=== PATIENT | male | born 1930 | race Caucasian/White ===

== ENCOUNTER 2016-07-19 19:49 | Emergency (ER) | payer MEDICARE ==
[~2016-07-19] VITALS: Ht 162.6 cm; Wt 67.0 kg
[~2016-07-19 19:49] MED LIST: ASPI81 PO; ATOR10 PO; [UNRECOGNIZED DRUG - REMARK]
[2016-07-19 20:53] VITALS: BP 113/75; PULSE 86; RESP 24; TEMP 100; O2SAT 91
[2016-07-19 21:16] VITALS: BP 113/75; PULSE 86; RESP 20; TEMP 100; O2SAT 91
--- NOTE | 2016-07-19 21:31 | PD ---
HPI Chief Complaint: Cold / Flu Symptoms Time Seen by Provider: 21:10 Travel History International Travel<30 days: No Contact w/Intl Traveler<30days: No Traveled to known affect area: No History of Present Illness HPI This 85-year-old male is complaining of persistent cough. He's been coughing for several days. He does not smoke. He has no history of hypertension or diabetes. He does have a pacemaker. He says he has not been feeling short of breath. He has been feeling quite weak. He needed help getting off the commode earlier today which is quite unusual. He has been little bit confused. PFSH Past Medical History Autoimmune Disease: No Blood Disorders: No Heart Rhythm Problems: Yes (BRADYCARDIA) Cancer: Yes Cardiovascular Problems: Yes High Cholesterol: Yes Chemotherapy: No Chest Pain: No Congestive Heart Failure: No Diminished Hearing: No Endocrine: No Gastrointestinal Disorders: No Genitourinary: No Hypertension: No Immune Disorder: No Implanted Vascular Access Dvce: No Musculoskeletal: No Neurologic: Yes (CRANIOTOMY IN 1980 ) Psychiatric: No Reproductive: No Respiratory: No Immunizations Current: Yes ([id number]) Myocardial Infarction: No Radiation Therapy: Yes (RADIATION FINISHED IN 1991 BENIGN TUMOR OPTIC NERVE) Tetanus Vaccination: Unknown PNEUMOCCOCAL Vaccine (Year): 2007 Past Surgical History Abdominal Surgery: Yes (GALLBLADDER 08/2009) Cardiac Surgery: No Cholecystectomy: Yes Ear Surgery: No Endocrine Surgery: No Eye Surgery: Yes (EYE SURGERY TO REMOVE SCAR TISSUE, CATARACT SURGERY) Genitourinary Surgery: No Gynecologic Surgery: No Neurologic Surgery: Yes (CRANIOTOMY FOR TUMOR REMOVAL FROM OPTIC NERVE.) Oral Surgery: No Pacemaker: Yes Thoracic Surgery: No Other Surgery: Yes Social History Alcohol Use: Yes (OCCAISIONAL) Tobacco Use: No Substance Use: No Allergies-Medications (Allergen,Severity, Reaction): Coded Allergies: Dilantin (Verified Allergy, Severe, VERY SICK, 07/19/16) Phenobarbital (Verified Allergy, Severe, Hives, 07/19/16) Reported Meds & Prescriptions Reported Meds & Active Scripts Active No Active Prescriptions or Reported Medications Review of Systems General / Constitutional: Positive: Fever Eyes: No: Diploplia, Blurred Vision HENT: No: Lightheadedness Cardiovascular: No: Chest Pain or Discomfort, Palpitations Respiratory: Positive: Cough Gastrointestinal: No: Nausea, Vomiting Genitourinary: Positive: Frequency, Incontinence Musculoskeletal: No: Myalgias, Arthralgias Skin: No Rash, No Itching Neurologic: No: Weakness, Dizziness Endocrine: No: Heat Intolerance, Cold Intolerance Hematologic/Lymphatic: No: Easy Bruising Physical Exam Narrative GENERAL: Well-developed male SKIN: Warm and dry. HEAD: Atraumatic. Normocephalic. EYES: Pupils equal and round. No scleral icterus. No injection or drainage. ENT: No nasal bleeding or discharge. Mucous membranes pink and moist. NECK: Trachea midline. No JVD. CARDIOVASCULAR: Regular rate and rhythm. No murmur appreciated. RESPIRATORY: No accessory muscle use. Clear to auscultation. Breath sounds equal bilaterally. GASTROINTESTINAL: Abdomen soft, non-tender, nondistended. Hepatic and splenic margins not palpable. MUSCULOSKELETAL: No obvious deformities. No clubbing. No cyanosis. No edema. NEUROLOGICAL: Awake and alert. No obvious cranial nerve deficits. Motor grossly within normal limits. Normal speech. PSYCHIATRIC: Appropriate mood and affect; insight and judgment normal. Data Data Last Documented VS Vital Signs Date Time Temp Pulse Resp B/P Pulse Ox O2 Delivery O2 Flow Rate FiO2 07/19/16 22:55 73 18 107/72 94 Room Air 07/19/16 21:16 100.0 Orders Complete Blood Count With Diff (07/19/16 21:28) Comprehensive Metabolic Panel (07/19/16 21:28) Urinalysis - C+S If Indicated (07/19/16 21:28) Blood Culture (07/19/16 21:28) Chest, Single Ap (07/19/16 21:28) Iv Access Insert/Monitor (07/19/16 21:28) Oximetry (07/19/16 21:28) Oxygen Administration (07/19/16 21:28) Influenzae A/B Antigen (07/19/16 21:30) Acetaminophen (Tylenol) (07/19/16 21:45) Sodium Chlor 0.9% 1000 Ml Inj (Ns 1000 M (07/19/16 21:45) Lactic Acid Sepsis Protocol (07/19/16 22:00) Urinary Catheter Insert/Apply (07/19/16 22:39) Ceftriaxone Inj (Rocephin Inj) (07/19/16 22:45) Labs Laboratory Tests Test 07/19/16 07/19/16 07/19/16 21:25 22:05 22:50 White Blood Count 5.3 TH/MM3 Red Blood Count 4.14 MIL/MM3 Hemoglobin 12.9 GM/DL Hematocrit 37.7 % Mean Corpuscular Volume 91.2 FL Mean Corpuscular Hemoglobin 31.1 PG Mean Corpuscular Hemoglobin 34.2 % Concent Red Cell Distribution Width 12.7 % Platelet Count 145 TH/MM3 Mean Platelet Volume 10.5 FL Neutrophils (%) (Auto) 80.3 % Lymphocytes (%) (Auto) 10.0 % Monocytes (%) (Auto) 9.4 % Eosinophils (%) (Auto) 0.1 % Basophils (%) (Auto) 0.2 % Neutrophils # (Auto) 4.2 TH/MM3 Lymphocytes # (Auto) 0.5 TH/MM3 Monocytes # (Auto) 0.5 TH/MM3 Eosinophils # (Auto) 0.0 TH/MM3 Basophils # (Auto) 0.0 TH/MM3 CBC Comment DIFF FINAL Differential Comment Sodium Level 139 MEQ/L Potassium Level 4.1 MEQ/L Chloride Level 104 MEQ/L Carbon Dioxide Level 27.3 MEQ/L Anion Gap 8 MEQ/L Blood Urea Nitrogen 27 MG/DL Creatinine 1.20 MG/DL Estimat Glomerular Filtration 57 ML/MIN Rate Random Glucose 123 MG/DL Calcium Level 8.3 MG/DL Total Bilirubin 0.4 MG/DL Aspartate Amino Transf 37 U/L (AST/SGOT) Alanine Aminotransferase 36 U/L (ALT/SGPT) Alkaline Phosphatase 84 U/L Total Protein 7.3 GM/DL Albumin 3.8 GM/DL Lactic Acid Level 1.5 mmol/L Urine pH 5.5 Urine Protein TRACE mg/dL Urine Glucose (UA) NEG mg/dL Urine Ketones NEG mg/dL Urine Occult Blood NEG Urine Nitrite NEG Urine Bilirubin NEG Urine Leukocyte Esterase NEG MDM Medical Decision Making Medical Screen Exam Complete: Yes Emergency Medical Condition: Yes Medical Record Reviewed: Yes Differential Diagnosis Differential includes pneumonia, UTI, delirium Narrative Course Chest x-ray is negative for pneumonia. His white count is 5.8. Test for influenza is negative. Urine is negative for infection. The patient has fever and his predominant symptom is cough. X-ray does not show a definite infiltrate. I am going to cover him with antibiotics. He is having symptoms of delirium secondary to his febrile illness. His daughter and granddaughter are here and are his caretakers at home. They are both health care workers and stated he does not do well in the hospital. They wish to take him home. He has been given Rocephin and will be released with prescription for Augmentin. Lab work is consistent with a viral illness but he does have a hacking cough and may develop an infiltrate. Diagnosis Primary Impression: Acute bronchitis Qualified Code: J20.9 - Acute bronchitis, unspecified organism Additional Instructions: tylenol for fever Scripts Amoxicillin-Clavulanate (Augmentin)500-125 mg [id number] Mg PO Q8H #21 TAB Ref 0 Prov:Shmuel Stewart MD 07/19/16 Disposition: 01 DISCHARGE HOME Condition: Stable Shmuel Stewart MD Jul 19, 2016 21:31
[2016-07-19] MEDS ORDERED: ACETAMINOPHEN 325 MG TAB PO ONE (21:45)
[2016-07-19] MEDS ORDERED: SODIUM CHLOR 0.9% 1000 ML INJ 1,000 ML IV SCH (21:45)
--- NOTE | 2016-07-19 21:57 | RADHPO ---
EXAM DATE/TIME: 07/19/2016 21:43 [facility] COMPARISON: CHEST SINGLE AP, June 07, 2014, 9:23. INDICATIONS : Cold like symptoms and lethargic. MEDICAL HISTORY : Bradycardia. SURGICAL HISTORY : Pacemaker. ENCOUNTER: Initial ACUITY: 4 - 6 days PAIN SCORE: 0/10 LOCATION: Bilateral chest FINDINGS: No infiltrate, effusion or pneumothorax seen. Heart size stable, upper limits of normal. Patient has a cardiac pacer. Tortuous thoracic aorta again noted. CONCLUSION: No acute abnormality demonstrated. Thor Nguyen MD on July 19, 2016 at 21:54 Board Certified Radiologist. This report was verified electronically.
[2016-07-19 21:59] LABS: AUTOMATED NEUTROPHIL # 4.2 TH/MM3 (1.8-7.7); BASOPHIL % 0.2 % (0.0-2.0); EOSINOPHIL % 0.1 % (0.0-4.0); HEMATOCRIT 37.7 % (39.0-51.0); LYMPHOCYTE # 0.5 TH/MM3 (1.0-4.8); MEAN CELL VOLUME 91.2 FL (80.0-100.0); MEAN CORPUSCULAR HEMOGLOBIN 31.1 PG (27.0-34.0); MEAN CORPUSCULAR HGB CONC 34.2 % (32.0-36.0); MONO % 9.4 % (0.0-8.0); NEUT % 80.3 % (16.0-70.0); PLATELET COUNT 145 TH/MM3 (150-450); RED BLOOD COUNT 4.14 MIL/MM3 (4.50-5.90); RED CELL DISTRIBUTION WIDTH 12.7 % (11.6-17.2); WHITE BLOOD COUNT 5.3 TH/MM3 (4.0-11.0)
[2016-07-19 22:07] LABS: HEMO FLAGS DIFF FINAL
[2016-07-19 22:14] LABS: CHLORIDE 104 MEQ/L (98-107); POTASSIUM 4.1 MEQ/L (3.5-5.1); SODIUM (NA) 139 MEQ/L (136-145)
[2016-07-19 22:18] LABS: ANION GAP 8 MEQ/L (5-15); BICARBONATE 27.3 MEQ/L (21.0-32.0); BLOOD UREA NITROGEN 27 MG/DL (7-18)
[2016-07-19 22:21] LABS: ALT (GPT) 36 U/L (12-78); AST (GOT) 37 U/L (15-37); GLOMERULAR FILTRATION RATE 57 ML/MIN (>89)
[2016-07-19 22:23] LABS: TOTAL BILIRUBIN ADULT 0.4 MG/DL (0.2-1.0)
[2016-07-19 22:24] LABS: ALKALINE PHOSPHATASE 84 U/L (45-117)
[2016-07-19] MEDS ORDERED: cefTRIAXone INJ 1,000 MG in SODIUM CHLORIDE 0.9% INJ 100 ML IV ONE (22:45)
[2016-07-19 22:55] VITALS: BP 107/72; PULSE 73; RESP 18; O2SAT 94
[2016-07-19 22:56] LABS: BLOOD, URINE NEG (NEG); GLUCOSE,URINE NEG (NEG); KETONE, URINE NEG (NEG); NITRITE,URINE NEG (NEG); PH, URINE 5.5 (5.0-8.5)
[2016-07-19 23:05] LABS: COMMENT (UR) CULT NOT INDICATED; CULTURE IF INDICATED CULT NOT INDICATED; MUCUS URINE MOD /lpf (OCC); SQUAMOUS EPITHELIAL CELL URINE 0-2 /hpf (0-5); URINE COLOR YELLOW (YELLW/STRAW); WBC, URINE 0-2 /hpf (0-5)
[2016-07-19] MEDS ORDERED: AUGM500T7 PO (23:08)
[2016-07-19 23:50] VITALS: BP 110/74; PULSE 77; RESP 18; O2SAT 94
== END 2016-07-19 23:54 | disposition home or self-care (01) ==
LOC: PHED 19:49
DX: J20.9 Acute bronchitis, unspecified (principal); R50.9 Fever, unspecified; R53.1 Weakness; R41.0 Disorientation, unspecified; E78.00 Pure hypercholesterolemia, unspecified; Z95.0 Presence of cardiac pacemaker; Z86.79 Personal history of other diseases of the circulatory system; Z86.69 Personal history of other diseases of the nervous system and sense organs
CPT/HCPCS: 71010; 80053; 81001; 83605; 85025; 87040; 87205; 87804; 96361; 96365; 99283; J0696; J7030; P9612

== ENCOUNTER 2016-09-09 16:25 | Emergency (ER) | payer MEDICARE ==
[~2016-09-09] VITALS: Ht 165.1 cm; Wt 68.0 kg
[~2016-09-09 16:25] MED LIST changes: -ASPI81 PO; -ATOR10 PO; +AUGM500T7 PO; -[UNRECOGNIZED DRUG - REMARK]
[2016-09-09 16:46] VITALS: BP 149/72; PULSE 90; RESP 16; TEMP 98.4; O2SAT 96
[2016-09-09] MEDS ORDERED: SODIUM CHLOR 0.9% 1000 ML INJ 1,000 ML IV ONE (16:46)
--- NOTE | 2016-09-09 16:47 | PD ---
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 Patient was found lying in the Road. He was pale, cool, diaphoretic at that time. He was given normal saline bolus in route and seemed to perk up per [facility]. Patient stutters a [employer] here at the hospital. She meets is in the room. She states that the patient attempted to take a walk without his walker. He states he has never left the house in the past. She states that the patient's confusion is at baseline at this time. Patient reports no significant pain. He does have obvious trauma to his head and face. He is following simple commands. He has participated in conversation. He has no other symptoms to report this time. Daughter states that the patient is a DNR and is not taking any medication that has been prescribed due to a family decision to stop. PFSH Past Medical History Autoimmune Disease: No Blood Disorders: No Heart Rhythm Problems: Yes (BRADYCARDIA) Cancer: Yes Cardiovascular Problems: Yes High Cholesterol: Yes Chemotherapy: No Chest Pain: No Congestive Heart Failure: No Diminished Hearing: No Endocrine: No Gastrointestinal Disorders: No Genitourinary: No Hypertension: No Immune Disorder: No Implanted Vascular Access Dvce: No Musculoskeletal: No Neurologic: Yes (CRANIOTOMY IN 1980 ) Psychiatric: No Reproductive: No Respiratory: No Immunizations Current: Yes ([id number]) Myocardial Infarction: No Radiation Therapy: Yes (RADIATION FINISHED IN 1991 BENIGN TUMOR OPTIC NERVE) PNEUMOCCOCAL Vaccine (Year): 2007 Past Surgical History Abdominal Surgery: Yes (GALLBLADDER 08/2009) Cardiac Surgery: No Cholecystectomy: Yes Ear Surgery: No Endocrine Surgery: No Eye Surgery: Yes (EYE SURGERY TO REMOVE SCAR TISSUE, CATARACT SURGERY) Genitourinary Surgery: No Gynecologic Surgery: No Neurologic Surgery: Yes (CRANIOTOMY FOR TUMOR REMOVAL FROM OPTIC NERVE.) Oral Surgery: No Pacemaker: Yes Thoracic Surgery: No Other Surgery: Yes Social History Alcohol Use: Yes (OCCAISIONAL) Tobacco Use: No Substance Use: No Allergies-Medications (Allergen,Severity, Reaction): Coded Allergies: Dilantin (Verified Allergy, Severe, VERY SICK, 07/19/16) Phenobarbital (Verified Allergy, Severe, Hives, 07/19/16) Reported Meds & Prescriptions Reported Meds & Active Scripts Active Mupirocin Topical (Mupirocin) 2 % Oint 1 Applic TOPICAL BID Peridex Liq (Chlorhexidine Gluconate (Mouth) Liq) 0.12% Soln 15 Ml SWISH-SPIT BID Review of Systems Except as stated in HPI: all other systems reviewed are Neg Physical Exam Narrative GENERAL: Well-nourished elderly male patient, lying in bed, in no acute distress SKIN: Focused skin assessment warm/dry. Abrasions over the left forehead and nasal bridge and inferior to the left near. There is a small puncture wound inferior to the left near. HEAD: Arch scalpel hematoma left forehead. Mild ecchymosis and periorbital edema of the left eye. Abrasions of the bilateral knees and posterior hands. Normocephalic. EYES: Pupils equal and round. No scleral icterus. No injection or drainage. ENT: No nasal bleeding or discharge. Mucous membranes pink and moist. There is a small superficial laceration on the inferior superior lip. DENTAL: No loose or chipped teeth. No malocclusion. NECK: Trachea midline. No JVD. CARDIOVASCULAR: Regular rate and rhythm. No murmur appreciated. RESPIRATORY: No accessory muscle use. Clear to auscultation. Breath sounds equal bilaterally. GASTROINTESTINAL: Abdomen soft, non-tender, nondistended. Hepatic and splenic margins not palpable. MUSCULOSKELETAL: No obvious deformities. No clubbing. No cyanosis. No edema. NEUROLOGICAL: Awake and alert. No obvious cranial nerve deficits. Motor grossly within normal limits. Normal speech. PSYCHIATRIC: Appropriate mood and affect Data Data Last Documented VS Vital Signs Date Time Temp Pulse Resp B/P Pulse Ox O2 Delivery O2 Flow Rate FiO2 09/09/16 19:06 89 18 154/70 96 Room Air 09/09/16 16:46 98.4 Orders Electrocardiogram (09/09/16 16:46) Complete Blood Count With Diff (09/09/16 16:46) Comprehensive Metabolic Panel (09/09/16 16:46) Magnesium (Mg) (09/09/16 16:46) B-Type Natriuretic Peptide (09/09/16 16:46) Ckmb (Isoenzyme) Profile (09/09/16 16:46) Troponin I (09/09/16 16:46) Act Partial Throm Time (Ptt) (09/09/16 16:46) Prothrombin Time / Inr (Pt) (09/09/16 16:46) Urinalysis - C+S If Indicated (09/09/16 16:46) Chest, Single Ap (09/09/16 16:46) Ct Brain W/O Iv Contrast(Rout) (09/09/16 16:46) Ct Cerv Spine W/O Contrast (09/09/16 16:46) Ecg Monitoring (09/09/16 16:46) Iv Access Insert/Monitor (09/09/16 16:46) Oximetry (09/09/16 16:46) Sodium Chloride 0.9% Flush (Ns Flush) (09/09/16 17:00) Sodium Chlor 0.9% 1000 Ml Inj (Ns 1000 M (09/09/16 16:46) Ct Facial Bones W/O Iv Cont (09/09/16 ) CKMB (09/09/16 16:50) CKMB% (09/09/16 16:50) Wound Care (09/09/16 18:56) Ice / Cold Pack PRN (09/09/16 18:56) Labs Laboratory Tests Test 09/09/16 09/09/16 16:50 17:40 White Blood Count 7.4 TH/MM3 Red Blood Count 3.88 MIL/MM3 Hemoglobin 12.0 GM/DL Hematocrit 35.2 % Mean Corpuscular Volume 90.7 FL Mean Corpuscular Hemoglobin 31.0 PG Mean Corpuscular Hemoglobin 34.2 % Concent Red Cell Distribution Width 13.8 % Platelet Count 148 TH/MM3 Mean Platelet Volume 10.1 FL Neutrophils (%) (Auto) 75.8 % Lymphocytes (%) (Auto) 15.5 % Monocytes (%) (Auto) 6.4 % Eosinophils (%) (Auto) 1.9 % Basophils (%) (Auto) 0.4 % Neutrophils # (Auto) 5.6 TH/MM3 Lymphocytes # (Auto) 1.2 TH/MM3 Monocytes # (Auto) 0.5 TH/MM3 Eosinophils # (Auto) 0.1 TH/MM3 Basophils # (Auto) 0.0 TH/MM3 CBC Comment DIFF FINAL Differential Comment Prothrombin Time 10.7 SEC Prothromb Time International 1.0 RATIO Ratio Activated Partial 23.6 SEC Thromboplast Time Sodium Level 141 MEQ/L Potassium Level 4.3 MEQ/L Chloride Level 109 MEQ/L Carbon Dioxide Level 24.6 MEQ/L Anion Gap 7 MEQ/L Blood Urea Nitrogen 21 MG/DL Creatinine 1.12 MG/DL Estimat Glomerular Filtration 62 ML/MIN Rate Random Glucose 123 MG/DL Calcium Level 8.2 MG/DL Magnesium Level 2.1 MG/DL Total Bilirubin 0.3 MG/DL Aspartate Amino Transf 22 U/L (AST/SGOT) Alanine Aminotransferase 15 U/L (ALT/SGPT) Alkaline Phosphatase 56 U/L Total Creatine Kinase 131 U/L Creatine Kinase MB 3.5 NG/ML Troponin I LESS THAN 0.02 NG/ML B-Type Natriuretic Peptide 57 PG/ML Total Protein 6.2 GM/DL Albumin 3.4 GM/DL Urine Color YELLOW Urine Turbidity CLEAR Urine pH 5.0 Urine Specific [place] 1.016 Urine Protein NEG mg/dL Urine Glucose (UA) NEG mg/dL Urine Ketones NEG mg/dL Urine Occult Blood NEG Urine Nitrite NEG Urine Bilirubin NEG Urine Urobilinogen LESS THAN 2.0 MG/DL Urine Leukocyte Esterase NEG Urine RBC 1 /hpf Urine WBC LESS THAN 1 /hpf Urine Squamous Epithelial <1 /hpf Cells Urine Hyaline Casts 1 /lpf Urine Mucus FEW /lpf Microscopic Urinalysis Comment CULT NOT INDICATED MDM Medical Decision Making Medical Screen Exam Complete: Yes Emergency Medical Condition: Yes Medical Record Reviewed: Yes Differential Diagnosis Electrolyte abnormality versus dehydration versus minor head injury versus intracranial hemorrhage versus ACS versus syncope versus near syncope Narrative Course 86-year-old male with history of Alzheimer disease presents to the emergency department following an unwitnessed fall. Patient is awake and alert when he presents to [facility] department. He is oriented to self and knows that he is at [facility]. He denies any pain. He does have obvious trauma to his forehead and periorbital swelling of the left eye with ecchymosis. He also has abrasions to face, knees, and hands. Chest x-rays without acute cardiopulmonary disease. CT imaging of the brain is without acute intracranial abnormality. CT imaging of the facial bones and cervical spine are without acute bony abnormality. Laboratory Tests Test 09/09/16 09/09/16 16:50 17:40 White Blood Count 7.4 TH/MM3 Red Blood Count 3.88 MIL/MM3 Hemoglobin 12.0 GM/DL Hematocrit 35.2 % Mean Corpuscular Volume 90.7 FL Mean Corpuscular Hemoglobin 31.0 PG Mean Corpuscular Hemoglobin 34.2 % Concent Red Cell Distribution Width 13.8 % Platelet Count 148 TH/MM3 Mean Platelet Volume 10.1 FL Neutrophils (%) (Auto) 75.8 % Lymphocytes (%) (Auto) 15.5 % Monocytes (%) (Auto) 6.4 % Eosinophils (%) (Auto) 1.9 % Basophils (%) (Auto) 0.4 % Neutrophils # (Auto) 5.6 TH/MM3 Lymphocytes # (Auto) 1.2 TH/MM3 Monocytes # (Auto) 0.5 TH/MM3 Eosinophils # (Auto) 0.1 TH/MM3 Basophils # (Auto) 0.0 TH/MM3 CBC Comment DIFF FINAL Differential Comment Prothrombin Time 10.7 SEC Prothromb Time International 1.0 RATIO Ratio Activated Partial 23.6 SEC Thromboplast Time Sodium Level 141 MEQ/L Potassium Level 4.3 MEQ/L Chloride Level 109 MEQ/L Carbon Dioxide Level 24.6 MEQ/L Anion Gap 7 MEQ/L Blood Urea Nitrogen 21 MG/DL Creatinine 1.12 MG/DL Estimat Glomerular Filtration 62 ML/MIN Rate Random Glucose 123 MG/DL Calcium Level 8.2 MG/DL Magnesium Level 2.1 MG/DL Total Bilirubin 0.3 MG/DL Aspartate Amino Transf 22 U/L (AST/SGOT) Alanine Aminotransferase 15 U/L (ALT/SGPT) Alkaline Phosphatase 56 U/L Total Creatine Kinase 131 U/L Creatine Kinase MB 3.5 NG/ML Troponin I LESS THAN 0.02 NG/ML B-Type Natriuretic Peptide 57 PG/ML Total Protein 6.2 GM/DL Albumin 3.4 GM/DL Urine Color YELLOW Urine Turbidity CLEAR Urine pH 5.0 Urine Specific [place] 1.016 Urine Protein NEG mg/dL Urine Glucose (UA) NEG mg/dL Urine Ketones NEG mg/dL Urine Occult Blood NEG Urine Nitrite NEG Urine Bilirubin NEG Urine Urobilinogen LESS THAN 2.0 MG/DL Urine Leukocyte Esterase NEG Urine RBC 1 /hpf Urine WBC LESS THAN 1 /hpf Urine Squamous Epithelial <1 /hpf Cells Urine Hyaline Casts 1 /lpf Urine Mucus FEW /lpf Microscopic Urinalysis Comment CULT NOT INDICATED I have reviewed the lab findings and imaging studies with my attending physician. I have discussed them with the family at bedside who is the daughter and the granddaughter. Observation status is offered to the family but there are no acute findings in the lab work or imaging studies that would make this the only option. After discussion, It is decided the patient will be discharged home with family at this time. They agree to return immediately with any acute worsening of symptoms. Diagnosis Primary Impression: Minor head injury Qualified Code: S00.90XA - Minor head injury, initial encounter Additional Impressions: Facial contusion Qualified Code: S00.83XA - Facial contusion, initial encounter Fall Qualified Code: W19.XXXA - Fall, initial encounter Lip laceration Qualified Code: S01.511A - Lip laceration, initial encounter Rib contusion Qualified Code: S20.212A - Rib contusion, left, initial encounter Referrals: Primary Care Physician Patient Instructions: Acute Wound Care (ED), General Instructions, Head Injury (ED) Additional Instructions: Ice to the affected area Keep the wounds clean, apply antibiotic ointment Follow-up with your primary care provider Tylenol and/or ibuprofen as directed on package as needed for pain Return immediately with any acute worsening symptoms Med/Other Pt SpecificInfo: Prescription(s) given Scripts Mupirocin Topical 2 % Oint1 Applic TOPICAL BID #1 TUBE Ref 0 Prov:Joanna Fowler 09/09/16 Chlorhexidine Gluconate (Mouth) Liq (Peridex Liq)0.12% Soln15 Ml SWISH-SPIT BID #473 ML Ref 0 Prov:Joanna Fowler 09/09/16 Disposition: 01 DISCHARGE HOME Condition: Stable Joanna Fowler Sep 09, 2016 16:47
[2016-09-09 16:51] VITALS: O2SAT 95
[2016-09-09] MEDS ORDERED: SODIUM CHLORIDE 0.9% FLUSH 10 ML FLUSH IVF PRN (17:00)
--- NOTE | 2016-09-09 17:22 | RADRPT ---
EXAM DATE/TIME: 09/09/2016 16:46 [facility] COMPARISON: CHEST SINGLE AP, July 19, 2016, 21:43. INDICATIONS : Palpitations, fell MEDICAL HISTORY : Bradycardia. SURGICAL HISTORY : Pacemaker. ENCOUNTER: Initial ACUITY: 1 day PAIN SCORE: 0/10 LOCATION: Bilateral chest FINDINGS: The lungs are clear without infiltrate, nodule, or mass. There is no appreciable pleural effusion fo r technique. Heart and mediastinum are unremarkable. Left subclavian transvenous pacer wires are pre sent with tips in the right atrium and right ventricle. CONCLUSION: No acute cardiopulmonary disease. Kierra Lopez MD on September 09, 2016 at 17:19 Board Certified Radiologist. This report was verified electronically.
[2016-09-09 17:26] LABS: AUTOMATED NEUTROPHIL # 5.6 TH/MM3 (1.8-7.7); BASOPHIL % 0.4 % (0.0-2.0); EOSINOPHIL # 0.1 TH/MM3 (0-0.4); EOSINOPHIL % 1.9 % (0.0-4.0); HEMATOCRIT 35.2 % (39.0-51.0); HEMO FLAGS DIFF FINAL; LYMPH % 15.5 % (9.0-44.0); LYMPHOCYTE # 1.2 TH/MM3 (1.0-4.8); MEAN CELL VOLUME 90.7 FL (80.0-100.0); MEAN CORPUSCULAR HGB CONC 34.2 % (32.0-36.0); MONO % 6.4 % (0.0-8.0); NEUT % 75.8 % (16.0-70.0); PLATELET COUNT 148 TH/MM3 (150-450); RED BLOOD COUNT 3.88 MIL/MM3 (4.50-5.90); RED CELL DISTRIBUTION WIDTH 13.8 % (11.6-17.2); WHITE BLOOD COUNT 7.4 TH/MM3 (4.0-11.0)
[2016-09-09 17:49] LABS: APTT (PATIENT) 23.6 SEC (24.3-30.1); PROTHROMBIN TIME - PATIENT 10.7 SEC (9.8-11.6)
[2016-09-09 17:54] LABS: ALT (GPT) 15 U/L (12-78); ANION GAP 7 MEQ/L (5-15); AST (GOT) 22 U/L (15-37); BICARBONATE 24.6 MEQ/L (21.0-32.0); BLOOD UREA NITROGEN 21 MG/DL (7-18); CHLORIDE 109 MEQ/L (98-107); GLOMERULAR FILTRATION RATE 62 ML/MIN (>89); MAGNESIUM 2.1 MG/DL (1.5-2.5); POTASSIUM 4.3 MEQ/L (3.5-5.1); SODIUM (NA) 141 MEQ/L (136-145)
[2016-09-09 17:58] LABS: ALKALINE PHOSPHATASE 56 U/L (45-117); CREATINE KINASE 131 U/L (39-308); TOTAL BILIRUBIN ADULT 0.3 MG/DL (0.2-1.0)
[2016-09-09 18:09] LABS: CKMB 3.5 NG/ML (0.5-3.6)
[2016-09-09 18:16] LABS: BLOOD, URINE NEG (NEG); COMMENT (UR) CULT NOT INDICATED; CULTURE IF INDICATED CULT NOT INDICATED; GLUCOSE,URINE NEG (NEG); HYALINE CAST, URINE 1 /lpf (RARE); KETONE, URINE NEG (NEG); MUCUS URINE FEW /lpf (OCC); NITRITE,URINE NEG (NEG); SQUAMOUS EPITHELIAL CELL URINE <1 /hpf (0-5); URINE COLOR YELLOW (YELLW/STRAW)
--- NOTE | 2016-09-09 18:36 | RADRPT ---
EXAM DATE/TIME: 09/09/2016 18:17 [facility] COMPARISON: CT BRAIN W/O CONTRAST, December 20, 2014, 12:20. INDICATIONS : Trauma; fall. Confusion. RADIATION DOSE: 33.70 CTDIvol (mGy) MEDICAL HISTORY : Cardiovascular disease. SURGICAL HISTORY : Cholecystectomy. Craniotomy. ENCOUNTER: Initial ACUITY: 1 day PAIN SCALE: Non-responsive LOCATION: cranial TECHNIQUE: Multiple contiguous axial images were obtained of the head. Using automated exposure control and adj ustment of the mA and/or kV according to patient size, radiation dose was kept as low as reasonably a chievable to obtain optimal diagnostic quality images. FINDINGS: There is no evidence for intracranial hemorrhage, mass effect, mass lesions, or edema. The visualize d bony structures appear intact. Slight degree of brain atrophy is seen. Slight periventricular whit e matter changes are seen nonspecific mostly consistent with chronic small vessel ischemic changes. There are no signs of acute infarction for technique. There is a scalp hematoma in mid frontal region which measures almost 4.1 cm in size extending to the top of the patient nose towards the left side into the pre-septal location. There is complete opacification of the frontal sinuses and moderate muc operiosteal thickening within the ethmoid air cells. CONCLUSION: Scalp hematoma and preseptal swelling on the left.. Kierra Lopez MD on September 09, 2016 at 18:33 Board Certified Radiologist. This report was verified electronically.
--- NOTE | 2016-09-09 18:51 | RADRPT ---
EXAM DATE/TIME: 09/09/2016 18:17 [facility] COMPARISON: No previous studies available for comparison. INDICATIONS : Trauma; fall. RADIATION DOSE: 21.26 CTDIvol (mGy) MEDICAL HISTORY : Cardiovascular disease. SURGICAL HISTORY : Cholecystectomy. Craniotomy. ENCOUNTER: Initial ACUITY: 1 day PAIN SCALE: Non-responsive LOCATION: neck TECHNIQUE: Volumetric scanning of the cervical spine was performed. Multiplanar reconstructions in the sagittal, coronal and oblique axial planes were performed. Using automated exposure control and adjustment o f the mA and/or kV according to patient size, radiation dose was kept as low as reasonably achievable to obtain optimal diagnostic quality images. FINDINGS: No significant subluxation or soft tissue swelling is seen. No definite fracture is seen for techniqu e. There is diffuse osteopenia with degenerative spondylosis at multiple levels worse at C5-6 and C6- 7. C2-C3: No appreciable compromised to the thecal sac, exiting nerve roots are seen. The neural chata dulce are patent bilaterally. No appreciable thecal sac stenosis is seen. C3-C4: No appreciable compromised to the thecal sac, exiting nerve roots are seen. The neural chata dulce are patent bilaterally. No appreciable thecal sac stenosis is seen. C4-C5: No appreciable compromised to the thecal sac, exiting nerve roots are seen. The neural chata dulce are patent bilaterally. No appreciable thecal sac stenosis is seen. C5-C6: No appreciable compromised to the thecal sac, exiting nerve roots are seen. The neural chata dulce are patent bilaterally. No appreciable thecal sac stenosis is seen. C6-C7: No appreciable compromised to the thecal sac, exiting nerve roots are seen. The neural chata dulce are patent bilaterally. No appreciable thecal sac stenosis is seen. C7-T1: No appreciable compromised to the thecal sac, exiting nerve roots are seen. The neural chata dulce are patent bilaterally. No appreciable thecal sac stenosis is seen CONCLUSION: Degenerative spondylosis without any significant compromise to the thecal sac or the exi ting nerve roots. Kierra Lopez MD on September 09, 2016 at 18:37 Board Certified Radiologist. This report was verified electronically.
--- NOTE | 2016-09-09 18:54 | RADRPT ---
EXAM DATE/TIME: 09/09/2016 18:17 [facility] COMPARISON: No previous studies available for comparison. INDICATIONS : Trauma; fall. RADIATION DOSE: 63.65 CTDIvol (mGy) MEDICAL HISTORY : Cardiovascular disease. SURGICAL HISTORY : Cholecystectomy. Craniotomy. ENCOUNTER: Initial ACUITY: 1 day PAIN SCORE: Non-responsive LOCATION: facial TECHNIQUE: Volumetric scanning of the facial bones was performed. Using automated exposure control and adjustme nt of the mA and/or kV according to patient size, radiation dose was kept as low as reasonably achiev able to obtain optimal diagnostic quality images. FINDINGS: No definite fractures, or dislocations are identified. No definite lytic or sclerotic lesion is seen . There is complete opacification of bilateral frontal sinuses and to a moderate degree involving mul tiple eithmoid air cells. Scalp hematoma is present discussed on the patient's brain CT. There is pre septal soft tissue swelling on the left side without evidence for post septal extension. CONCLUSION: Scalp hematoma, preseptal swelling on the left and no definite fracture. Kierra Lopez MD on September 09, 2016 at 18:50 Board Certified Radiologist. This report was verified electronically.
[2016-09-09 19:06] VITALS: BP 154/70; PULSE 89; RESP 18; O2SAT 96
[2016-09-09] MEDS ORDERED: MUPI2OIN TOPICAL (19:09)
[2016-09-09] MEDS ORDERED: PERI0.126 SWISH-SPIT (19:09)
--- NOTE | 2016-09-10 23:02 | EKG ---
Date Performed: 09/09/2016 Time Performed: 17:16:24 PTAGE: 86 years EKG: Sinus rhythm NORMAL ECG PREVIOUS TRACING : 06/07/2014 09.20 Compared to prior tracing no significant change DOCTOR: Prudencio Sanderson Interpretating Date/Time 09/10/2016 23:00:08
== END 2016-09-09 19:35 | disposition home or self-care (01) ==
LOC: NEPE 16:25
DX: S01.511A Laceration without foreign body of lip, initial encounter (principal); S00.83XA Contusion of other part of head, initial encounter; S20.219A Contusion of unspecified front wall of thorax, initial encounter; R61 Generalized hyperhidrosis; G30.9 Alzheimer's disease, unspecified; F02.80 Dementia in other diseases classified elsewhere, unspecified severity, without behavioral disturbance, psychotic disturbance, mood disturbance, and anxiety; E78.00 Pure hypercholesterolemia, unspecified; Z95.0 Presence of cardiac pacemaker; W19.XXXA Unspecified fall, initial encounter; Y93.9 Activity, unspecified; Y92.9 Unspecified place or not applicable; Y99.9 Unspecified external cause status; Z79.899 Other long term (current) drug therapy
CPT/HCPCS: 70450; 70486; 71010; 72125; 80053; 81001; 82550; 82552; 83735; 83880; 84484; 85025; 85610; 85730; 93005; 99285; J7030

== ENCOUNTER 2016-09-25 16:57 | Emergency (ER) | payer MEDICARE ==
[~2016-09-25] VITALS: Ht 162.6 cm; Wt 65.7 kg
[~2016-09-25 16:57] MED LIST changes: -AUGM500T7 PO; +MUPI2OIN TOPICAL; +PERI0.126 SWISH-SPIT
[2016-09-25 17:04] VITALS: BP 125/68; PULSE 72; RESP 16; TEMP 98.4; O2SAT 97
--- NOTE | 2016-09-25 17:25 | PD ---
HPI Chief Complaint: Edema Time Seen by Provider: 17:09 Travel History International Travel<30 days: No Contact w/Intl Traveler<30days: No Traveled to known affect area: No History of Present Illness HPI This 86-year-old male is brought by his family for evaluation of edema. Patient is then developed bilateral pedal edema over the last 2-3 weeks. He has not been complaining of shortness of breath or chest pain. He has had a pacemaker in for about 3 years. He had a fall 3 weeks ago in which he hit his face. Family says the edema has developed since that time. He was seen at [facility] after that fall and had multiple CT scans which were negative. He did have a lot of swelling of his left hand which seems to be improving. He has had a bit of a cough. Family is not aware of any history of congestive heart failure or coronary artery disease. He has no history of DVT. He has a history of Alzheimer's disease PFSH Past Medical History Hx Anticoagulant Therapy: No Alzheimer's Disease: Yes Autoimmune Disease: No Blood Disorders: No Heart Rhythm Problems: Yes (BRADYCARDIA) Cancer: Yes Cardiovascular Problems: Yes High Cholesterol: Yes Chemotherapy: No Chest Pain: No Congestive Heart Failure: No Dementia: Yes Diabetes: No Diminished Hearing: No Endocrine: No Gastrointestinal Disorders: No Genitourinary: No Hypertension: No Immune Disorder: No Implanted Vascular Access Dvce: No Musculoskeletal: No Neurologic: Yes (CRANIOTOMY IN 1980 ) Psychiatric: No Reproductive: No Respiratory: No Immunizations Current: Yes ([id number]) Myocardial Infarction: No Radiation Therapy: Yes (RADIATION FINISHED IN 1991 BENIGN TUMOR OPTIC NERVE) PNEUMOCCOCAL Vaccine (Year): 2007 Past Surgical History Abdominal Surgery: Yes (GALLBLADDER 08/2009) Cardiac Surgery: No Cholecystectomy: Yes Ear Surgery: No Endocrine Surgery: No Eye Surgery: Yes Genitourinary Surgery: No Gynecologic Surgery: No 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) Oral Surgery: No Pacemaker: Yes Thoracic Surgery: No Other Surgery: Yes (gallbladder removed) Social History Alcohol Use: No Tobacco Use: No (in youth) Substance Use: No Allergies-Medications (Allergen,Severity, Reaction): Coded Allergies: Dilantin (Verified Allergy, Severe, VERY SICK, 09/25/16) Phenobarbital (Verified Allergy, Severe, Hives, 09/25/16) Reported Meds & Prescriptions Reported Meds & Active Scripts Active No Active Prescriptions or Reported Medications Review of Systems General / Constitutional: No: Fever, Chills Eyes: No: Diploplia, Blurred Vision HENT: No: Headaches Cardiovascular: Positive: Edema, No: Chest Pain or Discomfort, Palpitations Respiratory: Positive: Cough, No: Wheezing Gastrointestinal: No: Nausea, Vomiting Genitourinary: No: Urgency Musculoskeletal: Positive: Myalgias, Pain Skin: No Rash Physical Exam Narrative GENERAL: Well-developed male SKIN: Focused skin assessment warm/dry. HEAD: Atraumatic. Normocephalic. EYES: Pupils equal and round. No scleral icterus. No injection or drainage. ENT: No nasal bleeding or discharge. Mucous membranes pink and moist. NECK: Trachea midline. No JVD. CARDIOVASCULAR: Regular rate and rhythm. No murmur appreciated. RESPIRATORY: No accessory muscle use. Clear to auscultation. Breath sounds equal bilaterally. GASTROINTESTINAL: Abdomen soft, non-tender, nondistended. Hepatic and splenic margins not palpable. MUSCULOSKELETAL: No obvious deformities. No clubbing. No cyanosis. Bilateral pedal edema to the knees NEUROLOGICAL: Awake and alert. No obvious cranial nerve deficits. Motor grossly within normal limits. Limited speech PSYCHIATRIC: Patient is quite confused but very cooperative Data Data Last Documented VS Vital Signs Date Time Temp Pulse Resp B/P Pulse Ox O2 Delivery O2 Flow Rate FiO2 09/25/16 18:56 61 16 119/61 97 Room Air 09/25/16 17:04 98.4 Orders Electrocardiogram (09/25/16 17:19) Complete Blood Count With Diff (09/25/16 17:19) Comprehensive Metabolic Panel (09/25/16 17:19) B-Type Natriuretic Peptide (09/25/16 17:19) Chest, Single Ap (09/25/16 17:19) Us Leg Venous Doppler Bilat (09/25/16 17:19) Hand, Complete ([id number]) (09/25/16 17:21) Labs Laboratory Tests Test 09/25/16 17:40 White Blood Count 5.8 TH/MM3 Red Blood Count 4.10 MIL/MM3 Hemoglobin 12.6 GM/DL Hematocrit 37.6 % Mean Corpuscular Volume 91.7 FL Mean Corpuscular Hemoglobin 30.7 PG Mean Corpuscular Hemoglobin 33.5 % Concent Red Cell Distribution Width 13.1 % Platelet Count 204 TH/MM3 Mean Platelet Volume 9.0 FL Neutrophils (%) (Auto) 65.8 % Lymphocytes (%) (Auto) 20.2 % Monocytes (%) (Auto) 8.8 % Eosinophils (%) (Auto) 4.5 % Basophils (%) (Auto) 0.7 % Neutrophils # (Auto) 3.8 TH/MM3 Lymphocytes # (Auto) 1.2 TH/MM3 Monocytes # (Auto) 0.5 TH/MM3 Eosinophils # (Auto) 0.3 TH/MM3 Basophils # (Auto) 0.0 TH/MM3 CBC Comment DIFF FINAL Differential Comment Sodium Level 140 MEQ/L Potassium Level 4.0 MEQ/L Chloride Level 105 MEQ/L Carbon Dioxide Level 28.9 MEQ/L Anion Gap 6 MEQ/L Blood Urea Nitrogen 24 MG/DL Creatinine 0.91 MG/DL Estimat Glomerular Filtration 79 ML/MIN Rate Random Glucose 99 MG/DL Calcium Level 8.4 MG/DL Total Bilirubin 0.2 MG/DL Aspartate Amino Transf 16 U/L (AST/SGOT) Alanine Aminotransferase 17 U/L (ALT/SGPT) Alkaline Phosphatase 96 U/L B-Type Natriuretic Peptide 29 PG/ML Total Protein 6.8 GM/DL Albumin 3.4 GM/DL [facility] Medical Decision Making Medical Screen Exam Complete: Yes Emergency Medical Condition: Yes Medical Record Reviewed: Yes Differential Diagnosis Differential includes CHF, hypoalbuminemia, DVT Narrative Course Ultrasound for DVT is negative. Chest x-ray shows enlarged heart but the lung molina. BNP is normal. Albumin is slightly low at 3.4. It was at this level about a month ago. Her there is no evidence of congestive failure or DVT. He does have mild hypoalbuminemia which could be contributing. I will prescribe Lasix 20 mg though I have recommended that it be stopped once the edema subsides. Diagnosis Primary Impression: Edema Qualified Code: R60.0 - Localized edema Scripts Furosemide (Lasix)20 Mg Tab20 Mg PO DAILY #30 TAB Ref 0 Prov:Shmuel Stewart MD 09/25/16 Disposition: 01 DISCHARGE HOME Condition: Stable Shmuel Stewart MD September 25, 2016 17:25
--- NOTE | 2016-09-25 17:48 | RADHPO ---
EXAM DATE/TIME: 09/25/2016 17:26 [facility] COMPARISON: CHEST SINGLE AP, September 09, 2016, 16:46. INDICATIONS : Short of breath. MEDICAL HISTORY : Cardiovascular disease. SURGICAL HISTORY : Pacemaker. ENCOUNTER: Initial ACUITY: 1 day PAIN SCORE: 0/10 LOCATION: Bilateral chest FINDINGS: The cardiac silhouette is enlarged in transverse diameter. A bipolar pacemaker is in place via a left sided approach. There is prominence of the aortic knob is with calcification characteristic of ather osclerotic vascular disease. The lungs are free of acute parenchymal opacity. No effusions are identi fied. CONCLUSION: 1. Cardiomegaly. No acute pulmonary disease. Betito Martinez MD on September 25, 2016 at 17:45 Board Certified Radiologist. This report was verified electronically.
--- NOTE | 2016-09-25 17:48 | RADHPO ---
EXAM DATE/TIME: 09/25/2016 17:26 [facility] COMPARISON: No previous studies available for comparison. INDICATIONS : Left hand pain on lateral side, post fall two weeks ago. MEDICAL HISTORY : None. SURGICAL HISTORY : None. ENCOUNTER: Initial ACUITY: 2 weeks PAIN SCORE: 2/10 LOCATION: Left hand. FINDINGS: There is no evidence of acute fracture. 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 Osseous structures are osteopenic. CONCLUSION: 1. There is no evidence of acute fracture. Betito Martinez MD on September 25, 2016 at 17:46 Board Certified Radiologist. This report was verified electronically.
[2016-09-25 17:52] LABS: AUTOMATED NEUTROPHIL # 3.8 TH/MM3 (1.8-7.7); BASOPHIL % 0.7 % (0.0-2.0); EOSINOPHIL # 0.3 TH/MM3 (0-0.4); EOSINOPHIL % 4.5 % (0.0-4.0); HEMATOCRIT 37.6 % (39.0-51.0); HEMO FLAGS DIFF FINAL; LYMPH % 20.2 % (9.0-44.0); LYMPHOCYTE # 1.2 TH/MM3 (1.0-4.8); MEAN CELL VOLUME 91.7 FL (80.0-100.0); MEAN CORPUSCULAR HEMOGLOBIN 30.7 PG (27.0-34.0); MEAN CORPUSCULAR HGB CONC 33.5 % (32.0-36.0); MONO % 8.8 % (0.0-8.0); NEUT % 65.8 % (16.0-70.0); PLATELET COUNT 204 TH/MM3 (150-450); RED CELL DISTRIBUTION WIDTH 13.1 % (11.6-17.2); WHITE BLOOD COUNT 5.8 TH/MM3 (4.0-11.0)
[2016-09-25 18:01] LABS: CHLORIDE 105 MEQ/L (98-107); SODIUM (NA) 140 MEQ/L (136-145)
[2016-09-25 18:05] LABS: ANION GAP 6 MEQ/L (5-15); BICARBONATE 28.9 MEQ/L (21.0-32.0); BLOOD UREA NITROGEN 24 MG/DL (7-18)
[2016-09-25 18:07] LABS: ALT (GPT) 17 U/L (12-78)
[2016-09-25 18:08] LABS: AST (GOT) 16 U/L (15-37); GLOMERULAR FILTRATION RATE 79 ML/MIN (>89)
[2016-09-25 18:09] LABS: TOTAL BILIRUBIN ADULT 0.2 MG/DL (0.2-1.0)
[2016-09-25 18:10] LABS: ALKALINE PHOSPHATASE 96 U/L (45-117)
[2016-09-25 18:56] VITALS: BP 119/61; PULSE 61; RESP 16; O2SAT 97
--- NOTE | 2016-09-25 19:38 | RADHPO ---
EXAM DATE/TIME: 09/25/2016 18:28 [facility] COMPARISON: No previous studies available for comparison. INDICATIONS : Bilateral leg swelling. MEDICAL HISTORY : Hypercholesterolemia. Cardiovascular problems. Dementia. Alzheimers. SURGICAL HISTORY : Pacemaker. Beningn optic nerve tumor remoted. ENCOUNTER: Initial ACUITY: 2 weeks PAIN SCORE: 0/10 LOCATION: Bilateral legs. TECHNIQUE: Venous ultrasound of the left and right leg was performed from the inguinal ligament to the proximal calf. Real-time, color Doppler and spectral tracing, compression and augmentation techniques were us ed. FINDINGS: RIGHT LEG: There is normal compressibility of the deep venous system from the inguinal region to the proximal ca lf. No echogenic clot is seen in the lumen of the common femoral, femoral, popliteal, and posterior tibial veins. There is a normal response of the venous system to proximal and distal augmentation an d respiration. LEFT LEG: There is normal compressibility of the deep venous system from the inguinal region to the proximal ca lf. No echogenic clot is seen in the lumen of the common femoral, femoral, popliteal, and posterior tibial veins. There is a normal response of the venous system to proximal and distal augmentation an d respiration. CONCLUSION: Normal examination. Fidel Licea MD on September 25, 2016 at 19:35 Board Certified Radiologist. This report was verified electronically.
[2016-09-25] MEDS ORDERED: FURO1TAB62 PO (19:45)
--- NOTE | 2016-09-26 10:57 | EKG ---
Date Performed: 09/25/2016 Time Performed: 17:37:36 PTAGE: 86 years EKG: Sinus rhythm Low QRS voltages in precordial leads Borderline ECG PREVIOUS TRACING : 09/09/2016 17.16 DOCTOR: Alessandro Mcdonald Interpretating Date/Time 09/26/2016 10:55:37
== END 2016-09-25 20:19 | disposition home or self-care (01) ==
LOC: PHED 16:57
DX: R60.0 Localized edema (principal); R05 Cough; I51.7 Cardiomegaly; E88.09 Other disorders of plasma-protein metabolism, not elsewhere classified; E78.00 Pure hypercholesterolemia, unspecified; G30.9 Alzheimer's disease, unspecified; F02.80 Dementia in other diseases classified elsewhere, unspecified severity, without behavioral disturbance, psychotic disturbance, mood disturbance, and anxiety; Z95.0 Presence of cardiac pacemaker
CPT/HCPCS: 71010; 73130; 80053; 83880; 85025; 93005; 93970

== ENCOUNTER 2017-02-14 18:26 | Emergency (ER) | payer MEDICARE, OTHER ==
[~2017-02-14] VITALS: Ht 166.4 cm; Wt 65.0 kg
[~2017-02-14 18:26] MED LIST changes: +FURO1TAB62 PO; -MUPI2OIN TOPICAL; -PERI0.126 SWISH-SPIT
[2017-02-14 18:32] VITALS: BP 129/59; PULSE 73; RESP 16; TEMP 98.7; O2SAT 96
--- NOTE | 2017-02-14 19:40 | PD ---
HPI Chief Complaint: Fall Time Seen by Provider: 19:26 Travel History International Travel<30 days: No Contact w/Intl Traveler<30days: No Traveled to known affect area: No History of Present Illness HPI This patient is living at home with family but he is on hospice for severe Alzheimer's dementia. He takes no medications. Today in the kitchen he bent over to pick something up and fell forward and hit his head on the ground. The daughter would like some imaging done to make sure there is nothing severe going on. She says that he is more somnolent than usual and not acting himself. They're not interested in other testing at this time. The patient himself feels fine and is asymptomatic. He denies headache or lightheadedness. Symptoms are of mild severity. Duration one day. No alleviating factors. Symptoms have no exacerbating factors PFSH Past Medical History Hx Anticoagulant Therapy: No Alzheimer's Disease: Yes Autoimmune Disease: No Blood Disorders: No Heart Rhythm Problems: Yes (BRADYCARDIA) Cancer: Yes Cardiovascular Problems: Yes (PACEMAKER) High Cholesterol: Yes Chemotherapy: No Chest Pain: No Congestive Heart Failure: No Dementia: Yes Diabetes: No Diminished Hearing: No Endocrine: No Gastrointestinal Disorders: No Genitourinary: No Hypertension: No Immune Disorder: No Implanted Vascular Access Dvce: No Musculoskeletal: No Neurologic: Yes (CRANIOTOMY IN 1980 ) Psychiatric: No Reproductive: No Respiratory: No Immunizations Current: Yes ([id number]) Myocardial Infarction: No Radiation Therapy: Yes (RADIATION FINISHED IN 1991 BENIGN TUMOR OPTIC NERVE) PNEUMOCCOCAL Vaccine (Year): 2007 Past Surgical History Abdominal Surgery: Yes (GALLBLADDER 08/2009) Cardiac Surgery: No Cholecystectomy: Yes Ear Surgery: No Endocrine Surgery: No Eye Surgery: Yes Genitourinary Surgery: No Gynecologic Surgery: No 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) Oral Surgery: No Pacemaker: Yes Thoracic Surgery: No Other Surgery: Yes (gallbladder removed) Social History Alcohol Use: No Tobacco Use: No (in youth) Substance Use: No Allergies-Medications (Allergen,Severity, Reaction): Coded Allergies: phenobarbital (Unverified Allergy, Severe, Hives, 02/14/17) phenytoin (Unverified Allergy, Severe, VERY SICK, 02/14/17) Reported Meds & Prescriptions Reported Meds & Active Scripts Active No Active Prescriptions or Reported Medications Review of Systems General / Constitutional: No: Fever Eyes: No: Visual changes HENT: No: Headaches Cardiovascular: No: Chest Pain or Discomfort Respiratory: No: Shortness of Breath Gastrointestinal: No: Abdominal Pain Genitourinary: No: Dysuria Musculoskeletal: No: Pain Skin: No Rash Neurologic: No: Weakness Psychiatric: No: Depression Endocrine: No: Polydipsia Hematologic/Lymphatic: No: Easy Bruising Physical Exam Narrative GENERAL: Well-nourished, well-developed patient in no apparent distress. SKIN: Focused skin assessment reveals no rash and nodules. Skin is Warm and dry. HEAD: Abraded area to the right moravian. Normocephalic. EYES: Pupils equal and round. No scleral icterus. No injection or drainage. ENT: No nasal bleeding or discharge. Mucous membranes pink and moist. NECK: Trachea midline. No JVD. No midline tenderness CARDIOVASCULAR: Regular rate and rhythm. No murmur appreciated. RESPIRATORY: No accessory muscle use. Clear to auscultation. Breath sounds equal bilaterally. GASTROINTESTINAL: Abdomen soft, non-tender, nondistended. Hepatic and splenic margins not palpable. MUSCULOSKELETAL: No obvious deformities. No clubbing. No cyanosis. No edema. NEUROLOGICAL: Awake and alert. No obvious cranial nerve deficits. Motor grossly within normal limits. Normal speech. PSYCHIATRIC: Appropriate mood and affect; insight and judgment reduced from dementia. Data Data Last Documented VS Vital Signs Date Time Temp Pulse Resp B/P (MAP) Pulse Ox O2 Delivery O2 Flow Rate FiO2 02/14/17 19:58 Room Air 02/14/17 18:32 98.7 73 16 129/59 (82) [address] Brain W/O Iv Contrast(Rout) (02/14/17 ) Influenza (Quad) Vaccine Inj (Fluzone In (02/14/17 20:00) MDM Medical Decision Making Medical Screen Exam Complete: Yes Emergency Medical Condition: Yes Medical Record Reviewed: Yes Differential Diagnosis Intracranial hemorrhage, concussion, contusion Narrative Course I have reviewed the patient's electronic medical record. Brain CT shows no acute traumatic finding. We did discuss the ventricular widening with family and they should discuss with the hospice physician but nothing acute or emergent to do. Patient is neurologically intact other than severe dementia He follows commands appropriately and denies any symptoms They requested influenza immunization which we provided Diagnosis Primary Impression: Head injury due to trauma Qualified Codes: S09.90XA - Unspecified injury of head, initial encounter Additional Instructions: The patient was advised to follow up with their physician and return if they worsen. Med/Other Pt SpecificInfo: Other Scripts No Active Prescriptions or Reported Meds Disposition: 01 DISCHARGE HOME Condition: Stable Alvin Negron MD Feb 14, 2017 19:40
[2017-02-14] MEDS ORDERED: [UNRECOGNIZED DRUG - OTHER] I-DERMAL ONE (20:00)
--- NOTE | 2017-02-14 20:59 | RADRPT ---
EXAM DATE/TIME: 02/14/2017 20:01 [facility] COMPARISON: CT FACIAL BONES W/O CONTRAST, September 09, 2016, 18:17. CT BRAIN W/O CONTRAST, September 09, 2016, 18:17. INDICATIONS : Status post fall today. Hit forehead. ? LOC RADIATION DOSE: 60.02 CTDIvol (mGy) MEDICAL HISTORY : Alzheimer's Benign optic nerve tumor SURGICAL HISTORY : Craniotomy. Optic nerve tumor removal ENCOUNTER: Initial ACUITY: 1 day PAIN SCALE: 5/10 LOCATION: Right cranial forehead TECHNIQUE: Multiple contiguous axial images were obtained of the head. Using automated exposure control and adj ustment of the mA and/or kV according to patient size, radiation dose was kept as low as reasonably a chievable to obtain optimal diagnostic quality images. DICOM format image data is available electro nically for review and comparison. FINDINGS: CEREBRUM: The ventricles and cortical sulci are widened. The ventricular dilatation appears somewhat proportion to the sulcal widening. There is stable encephalomalacia at the right frontal lobe. The patient is s tatus post right craniotomy. 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 No e vidence of midline shift, mass lesion, hemorrhage or acute infarction. No extra-axial fluid collecti ons are seen. POSTERIOR FOSSA: The cerebellum and brainstem are intact. The 4th ventricle is midline. The cerebellopontine angle i s unremarkable. EXTRACRANIAL: The visualized portion of the orbits is intact. There is opacification of the frontal sinuses. There is soft tissue density in the anterior right nasal cavity presumably related to the mucosal disease. This was present previously. SKULL: The calvaria is intact. No evidence of skull fracture. CONCLUSION: 1. No acute abnormality seen. 2. Atrophy. The ventricles are dilated somewhat out of proportion to the sulcal widening which can cheney ggest normal pressure hydrocephalus in the correct clinical situation. 3. Status post right craniotomy. There is a persistent area of right frontal encephalomalacia. 4. Sinus disease. Thor Dominguez MD on February 14, 2017 at 20:54 Board Certified Radiologist. This report was verified electronically.
[2017-02-14 21:22] VITALS: BP 115/77
== END 2017-02-14 21:35 | disposition home or self-care (01) ==
LOC: PHED 18:26
DX: S09.90XA Unspecified injury of head, initial encounter (principal); G30.9 Alzheimer's disease, unspecified; F02.80 Dementia in other diseases classified elsewhere, unspecified severity, without behavioral disturbance, psychotic disturbance, mood disturbance, and anxiety; E78.00 Pure hypercholesterolemia, unspecified; Z95.0 Presence of cardiac pacemaker; Z23 Encounter for immunization
CPT/HCPCS: 70450; 90630; 99284; G0008; 90471